=== PATIENT | male | born 1995 | race Caucasian/White ===

== ENCOUNTER 2017-02-26 00:59 | Emergency (ER) | payer BC ==
[~2017-02-26] VITALS: Ht 185.4 cm; Wt 75.0 kg
[2017-02-26 01:04] VITALS: BP 122/84; TEMP 98
[2017-02-26 02:20] VITALS: PULSE 82
== END 2017-02-26 02:20 | disposition home or self-care (01) ==
LOC: COL.ER 00:59
DX: S60.222A Contusion of left hand, initial encounter (principal); W22.09XA Striking against other stationary object, initial encounter; Y92.410 Unspecified street and highway as the place of occurrence of the external cause

== ENCOUNTER 2018-04-16 13:34 | Emergency (ER) | payer BC ==
[~2018-04-16] VITALS: Ht 185.4 cm; Wt 79.5 kg
[2018-04-16 13:38] VITALS: BP 127/76; TEMP 97.6
[2018-04-16 15:00] VITALS: PULSE 78
== END 2018-04-16 15:00 | disposition home or self-care (01) ==
LOC: COL.ER 13:34
DX: S93.602A Unspecified sprain of left foot, initial encounter (principal); X50.0XXA Overexertion from strenuous movement or load, initial encounter

== ENCOUNTER 2020-10-24 15:23 | Emergency (ER) | payer BC ==
[~2020-10-24] VITALS: Ht 185.4 cm; Wt 88.6 kg
[2020-10-24 15:32] VITALS: TEMP 98
[2020-10-24] MEDS ORDERED: ELIMITE TOP (16:55)
[2020-10-24] MEDS ORDERED: NORCO 325 MG-51 TAB PO (16:55)
[2020-10-24 17:17] VITALS: BP 131/83; PULSE 74
== END 2020-10-24 17:17 | disposition home or self-care (01) ==
LOC: COL.ER 15:23
DX: M25.551 Pain in right hip (principal)
CPT/HCPCS: J1885